=== PATIENT | male | born 2000 | race Caucasian/White ===

== ENCOUNTER 2022-03-22 15:39 | Emergency (ER) | payer MEDICAID ==
[~2022-03-22] VITALS: Ht 177.8 cm; Wt 91.0 kg
[2022-03-22] MEDS ORDERED: MORPHINE SULFATE 4 MG/ML CPJ (NOT FOR IM USE) IV STA (16:12)
[2022-03-22] MEDS ORDERED: ONDANSETRON HCL 4MG/2ML INJ IV STA (16:12)
[2022-03-22 16:44] LABS: HEMATOCRIT. 23.7 % (42.0-52.0); MEAN CORPUSCULAR VOLUME 97.9 fL (80.0-94.0); MEAN PLATELET VOLUME 8.4 fl (7.4-10.4); PLATELET 132 x1000/uL (130-400); RED BLOOD CELL COUNT 2.42 mill/uL (4.7-6.1); RED CELL DISTRIBUTION WIDTH 15.1 % (11.6-14.6)
[2022-03-22 16:48] LABS: CHLORIDE 103 mEq/L (98-107)
[2022-03-22 16:50] LABS: INR 2.2; PROTHROMBIN TIME 22.6 sec (9.6-11.0)
[2022-03-22] MEDS ORDERED: CEFTRIAXONE 2 G PREMIX 50 ML IV ONE (17:45)
[2022-03-22 17:52] LABS: PLATELET ESTIMATE NORMAL
[2022-03-22] MEDS ORDERED: CEFTRIAXONE 2 G in DEXTROSE 5% WATER 50 ML IV NR (18:00)
[2022-03-22] MEDS ORDERED: VANCOMYCIN 1G PREMIX 200 ML IV SCH (19:15)
[2022-03-22 21:54] VITALS: BP 103/55
== END 2022-03-22 22:15 | disposition short-term general hospital (02) ==
LOC: ER 15:39
DX: R18.8 Other ascites (principal); Z20.822 Contact with and (suspected) exposure to COVID-19
CPT/HCPCS: 36415; 71045; 74176; 80053; 82962; 83605; 83690; 83880; 84484; 85025; 85610; 87040; 87077; 87186; 87426; 96365; 96367; 96375; 99291; C9803; J0696; J2270; J2405; J7060; Z7610